=== PATIENT | male | born 1995 | race Caucasian/White ===

== ENCOUNTER → 2020-03-13 10:49 | Outpatient (BNVA) | payer OTHER, SELFPAY | PROVIDERS: Visit Provider Physician Assistant Medical | DX: S39.012A Strain of muscle, fascia and tendon of lower back, initial encounter (principal); X50.3XXA Overexertion from repetitive movements, initial encounter | CPT/HCPCS: 72100; 99203 ==

== ENCOUNTER → 2020-03-24 12:02 | Outpatient (BNVA) | payer OTHER, SELFPAY | PROVIDERS: Visit Provider Physician Assistant Medical | DX: S39.012D Strain of muscle, fascia and tendon of lower back, subsequent encounter (principal); X58.XXXD Exposure to other specified factors, subsequent encounter | CPT/HCPCS: 99213 ==

== ENCOUNTER → 2020-04-07 11:01 | Outpatient (BNVA) | payer OTHER, SELFPAY | PROVIDERS: Visit Provider Physician Assistant Medical | DX: S39.012D Strain of muscle, fascia and tendon of lower back, subsequent encounter (principal); X58.XXXD Exposure to other specified factors, subsequent encounter | CPT/HCPCS: 99213 ==

== ENCOUNTER 2020-04-25 08:00 | Outpatient (RCR) | payer OTHER, SELFPAY ==
--- NOTE | 2020-03-23 09:53 | MHC.PT.EP ---
[facility] [place] Office [place] [facility] [place] [facility] [address] Willow Crockett [address] [phone] F: [phone] F: [phone] F: [phone] F: [phone] Physical Therapy Plan of Care Date of Evaluation: 03/23/20 Date of Surgery: NA Diagnosis: Lumbar strain Assessment: 24 y/o male referred to PT from work connection with lumbar strain. He works in the [employer] at [place] on original products and injured himself 11/29/2019 when lifting a box that was heavier than expected. He felt sharp central back pain and thought it would resolve with time and Tylenol. It did not resolve and he followed up with work connection. Currently he is working light duty (15-20# lifting restriction) and restricted bending. He has pain with bending, donning/doffing shoes, and lifting. Examination shows decreased lumbar flexion AROM, decreased hip strength, lumbar paraspinal muscle spasm, R lumbar rotation at L3-5, and pain. Recommend PT 2x/week for 3-4 weeks to address impairments, implement HEP, and optimize functional mobility. Frequency and Duration: The patient will be seen 2x/week for 4weeks Short Term Goals: 2 weeks: 1. Initiate HEP 2. Improve lumbar flexion to 100% with pain <2/10 Alf Goals: 4 weeks: 1. Demonstrate proper lifting mechanics to lift 50# from 8 step to waist with pain < 2/10 2. I with HEP 3. WIll don/doff shoes with pain <2/10 Treatment Plan: Modalities to reduce pain, spasms and effusion. Manual therapy to restore motion and function. Therapeutic exercise to improve strength and flexibility. Neuromuscular re-education for posture and balance. Therapeutic activities to return to functional activities of daily living. Please sign and return to therapist. Thank you for your referral.
--- NOTE | 2020-04-06 12:27 | MHC.PT.OD ---
[facility] [place] Office [place] Office [place] Office [address] Willow Crockett [address] [phone] F: [phone] F: [phone] F: [phone] F: [phone] Physical Therapy Daily Note Diagnosis: Lumbar strain Date of Surgery: NA Date of Evaluation: 03/30/20 Treatments to Date: 4 Cancellations to Date: 0 No Shows to Date: 0 Authorized Visits: Insurance End Date: Precautions/ Contraindications: Subjective: Not too bad till I go into work. Reports walking from home to get to therapy, global soreness verbalized in legs with low exercise exercise thresh hold observed. Does report has had increased soreness L lumbar strain region at end of work shift- no report of back pain with therapy tasks to date. Pain Score: 2/10 Pain Location: lumbar Objective Flowsheet: Tests & Measures Exercises Upright bike level 2.0 x 10 minutes Standing functional chair squat with UE support on arms; extensive time spent regarding education of functional squat mechanics Hooklying bridge with band RTB around thigh x 15R, SL clamshell with RTB around thigh x 15R Education: Wall squat posterior weight shift functional squat training Had poor ability to maintain/demonstrate squat or identify self correction of technique Standing wall squat with RTB around thigh with ball chest presses x 2 sets 15R with cues for abdominal recruitment and squat technique posteriorly Body mehcanics education re: golfers lift when reaching over into deep freeezer/down for objects on floor, etc Reports prompt muscle fatigue with therex. ROCKTAPE TWO I strips for bilateral lumbar region with education re: application/removal indications for use, etc. Body mechanics education/training/functional sqart lifting from floor to waist with 9# freeweight with eggcrate ~10lbs. Simulated work activity educated pt in importance of correcting habits now for future injury. Repeated floor to waist x 5 reps with crate however due to poor mechanics this was stopped. Leg fatigue verbalized with therex as noted above Modalities Assessment: Despite repeated focus of education on functional squat today and last few sessions; Pt exhibits limited endurance of proper squat technique. He exhibits low exercise tolerance, fatigues easily with more simplified LE/core strength tasks. He has a difficulty discerning correct technique and continues to move with poor form when not given external cues. He was educated re: consistent practice at home and encouragement with repeated training. 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 PT Plan: Body mechanics education- traninig core strengthening, lumbar AROM/stretching, lifting training manual therapy Discharge Today? Short Term Goals: 2 weeks: 1. Initiate HEP 2. Improve lumbar flexion to 100% with pain <2/10 3. Functional squat with no LOB and good core recruitment. Halfway Goals: 4 weeks: 1. Demonstrate proper lifting mechanics to lift 50# from 8 step to waist with pain < 2/10 2. I with HEP 3. WIll don/doff shoes with pain <2/10 4. RTW full duty with good carryover body mechanics. Electronically signed by: Bhavani Saunders, PT, DPT
== END 2020-06-15 09:55 | disposition other institution (70) ==
LOC: HO.PTWFD 08:00
PROVIDERS: Visit Provider Physician Assistant Medical
DX: S39.012D Strain of muscle, fascia and tendon of lower back, subsequent encounter (principal)
CPT/HCPCS: 97110; 97140; 97161; 97530; 97535

== ENCOUNTER → 2020-05-23 10:48 | Outpatient (BNVA) | payer OTHER, SELFPAY | PROVIDERS: Visit Provider Physician Assistant Medical | DX: S39.012D Strain of muscle, fascia and tendon of lower back, subsequent encounter (principal); X58.XXXD Exposure to other specified factors, subsequent encounter | CPT/HCPCS: 99213 ==